=== PATIENT | male | born 1945 | race Caucasian/White ===

== ENCOUNTER → 2016-07-31 | Outpatient (CLI) | payer OTHER, BC | LOC: MMPC 11:11 | DX: H93.11 Tinnitus, right ear (principal); I10 Essential (primary) hypertension; H40.9 Unspecified glaucoma; M72.0 Palmar fascial fibromatosis [Dupuytren]; M10.9 Gout, unspecified; M65.28 Calcific tendinitis, other site | CPT/HCPCS: 99213; G0463 ==

== ENCOUNTER 2018-03-27 03:37 | Observation (INO) ==
--- NOTE | 2018-03-27 04:03 | PDOC ---
Abdomen/Flank HPI - General Chief Complaint: Abdomen Pain Stated Complaint: Stomach Pain Date Seen by Provider: 03/27/18 Time Seen by Provider: 03:55 Source: POSITIVE: Patient Exam Limitations: POSITIVE: No limitations Nurse's Notes Reviewed & Considered: Yes - History of Present Illness Initial Comments: The patient is a 72-year-old male who presents to the emergency department with complaints of abdominal pain. He states that yesterday evening he had onset of fairly severe upper abdominal pain. He had associated nausea however did not have any vomiting. He states that this intense pain lasted for several hours and then subsequently subsided for the most part. He has some continued residual pain primarily in his right lower abdomen. He states that currently his pain level is only a 1 out of 10. He denies any associated chest pain, shortness of breath, change in bowel movements, urinary symptoms, fever or any o ther associated complaints. He has not had any prior abdominal surgeries. He denies any previous history of similar pain. - Patient Home Medications Home Medications: Home Medications Aspirin 81 mg ORAL QD tab 03/15/12 Latanoprost [Xalatan] 1 drp OP QD drp 03/15/12 folic acid 1 mg tablet 1 mg PO QDAY #90 tab 05/28/17 timolol 0.5 % eye drops 1 drp OP QD #1 drp 01/10/18 losartan 50 mg-hydrochlorothiazide 12.5 mg tablet 1 tab PO QDAY #90 tab 02/17/18 allopurinol 300 mg tablet 300 mg PO QDAY #90 tab 02/19/18 - Patient Allergies Allergies/Adverse Reactions: Allergies Allergy/AdvReac Type Severity Reaction Status Date / Time brimonidine tartrate Allergy Intermediate NOT Verified 03/27/18 03:48 [From [facility]] APPLICABLE Past Medical History Past Medical History Reviewed: Other (please comment) ROS - Limitations ROS Limitations: No Limitations Constitution: DENIES: Chills, Fever Cardiovascular: DENIES: Chest Pain Respiratory: DENIES: Shortness Of Breath Neurological: REPORTS: Denies Neuro Symptoms Gastrointestinal: REPORTS: Abdominal Pain, Nausea. DENIES: Vomitting, Diarrhea, Black Stools, Bloody Stools Musculoskeletal: REPORTS: Denies MS Symptoms Genitourinary: REPORTS: Denies Symptoms Eyes: REPORTS: Denies Symptoms ENT: REPORTS: Denies Symptoms Skin: DENIES: Rash Abdominal/Flank Pain PE - General Appearance General Appearance: POSITIVE: Alert, Cooperative, No Acute Distress - HEENT HEENT: POSITIVE: Head Inspection Nml, Eyes Inspection Nml, Ears Inspection Nml, Pharynx Inspect. Nml - Neck Neck: POSITIVE: Normal Inspection. NEGATIVE: Lymphadenopathy - Respiratory Respiratory: POSITIVE: No Respiratory Distress, Breath Sounds Normal - Cardiovascular Cardiovascular: POSITIVE: Regular Rate and Rhythm, Heart Sounds Normal Peripheral Pulses: Dorsalis-pedis (R): 2+, Dorsalis-pedis (L): 2+ - Abdomen Abdomen: Soft: (All Quadrants), Normal Bowel Sounds: (All Quadrants), No Guarding: (All Quadrants), No Rebound: (All Quadrants), No Palpabale Mass: (All Quadrants), No Distention: (All Quadrants) Additional Abdominal Details: The patient does have tenderness in the right lower quadrant without guarding or rebound tenderness. - Back Back: NEGATIVE: CVA Tenderness (R), CVA Tenderness (L) - Skin Skin: POSITIVE: Intact, No Rash - Extremities Extremity: Normal ROM: (All Extremities), Normal Inspection: (All Extremities) - Neurological Neurological: POSITIVE: Oriented X3 Abdomen Progress - Results Reviewed by me Xrays/CTs/US Reviewed by me: Yes Discussed with Radiologist: Yes Radiology Findings: CT scan of the abdomen and pelvis with IV contrast shows an appendicolith with associated dilated appendix and inflammatory changes consistent with acute appendicitis per radiologist. Lab Results Reviewed by Me: Yes CBC and BMP: 03/27/18 04:25 03/27/18 04:25 - Patient's Progress MDM / ED Course: On arrival the patient was rating his pain at only a 1 out of 10. He does have tenderness in the right lower quadrant. An IV was established and blood work revealed an elevated white blood cell count 16.9. The remainder of his blood work was essentially unremarkable. CT scan of the abdomen and pelvis with IV contrast does show findings consistent with acute appendicitis without evidence of perforation per radiologist. These findings were discussed with the patient. Dr. Mendiola was consulted from general surgery. While awaiting surgical consultation the patient did have increased nausea and was given Zofran 4 mg IV. After surgical consultation, preparations were made to take the patient to the operating room for appendectomy per Dr. Mendiola. - Consult Counseled: POSITIVE: Patient, Family, RE: Lab Results, RE: Radiology Results, RE: DX Patient Care Time - Estimated PCT Patient Care Time (In Minutes): 35 Vital Signs - VS Reviewed Vital Signs Reviewed: Yes Discharge Clinical Impression: Acute appendicitis Condition: Fair Follow Up With: Luis Cano [Primary Care Provider] -
[2018-03-27 04:32] LABS: BASOPHILS # (AUTO) 0.02 10*3/UL; BASOPHILS % (AUTO) 0.1 % (0-1); EOSINOPHILS # (AUTO) 0.09 10*3/UL; EOSINOPHILS % (AUTO) 0.5 % (0-8); Hematocrit [HCT] 46.5 % (42.0-52.0); Hemoglobin [HGB] 16.1 g/dL (14.0-18.0); LYMPHOCYTES # (AUTO) 3.44 10*3/uL; MEAN CORPUSCULAR HEMOGLOBIN 30.6 PG (27-31); MEAN CORPUSCULAR HGB CONC 34.6 g/dL (33-37); MEAN CORPUSCULAR VOLUME 88.4 FL (80-90); MEAN PLATELET VOLUME 11.1 FL (7.4-12.2); MONOCYTES # (AUTO) 1.05 10*3/UL (0.3-0.8); MONOCYTES % (AUTO) 6.2 % (5-15); NEUTROPHILS % (AUTO) 72.7 % (50-80); PLATELET MORPHOLOGY COMMENT NORMAL MORPHOLOGY (NORM); RBC MORPHOLOGY COMMENT NORMAL MORPHOLOGY (NORM); RED BLOOD COUNT 5.26 10^6/uL (4.70-6.10); WBC MORPHOLOGY COMMENT NORMAL MORPHOLOGY (NORM)
[2018-03-27 04:43] LABS: BLOOD UREA NITROGEN 20 mg/dL (7-22); LIPASE 42 IU/L (23-300); SERUM ALBUMIN 4.6 g/dL (3.5-4.8)
--- NOTE | 2018-03-27 06:24 | DI ---
EXAM: CT Abdomen and Pelvis With Intravenous Contrast CLINICAL HISTORY: Abdominal Pain TECHNIQUE: Axial computed tomography images of the abdomen and pelvis with intravenous contrast. COMPARISON: No relevant prior studies available. FINDINGS: Lung bases: Unremarkable. No mass. No consolidation. Mediastinum: There is a small hiatal hernia. ABDOMEN: Liver: Unremarkable. No mass. Gallbladder and bile ducts: Unremarkable. No calcified stones. No ductal dilation. Pancreas: Unremarkable. No mass. No ductal dilation. Spleen: Unremarkable. No splenomegaly. Adrenals: Unremarkable. No mass. Kidneys and ureters: Unremarkable. No solid mass. No hydronephrosis. Stomach and bowel: Unremarkable. No obstruction. No mucosal thickening. PELVIS: Appendix: The appendix is thick, measuring up to 12 mm in diameter. There is a 5 mm appendicolith at the base of the appendix. There is mild inflammation around the periappendiceal fat. There is no evidence of perforation or abscess. Bladder: Unremarkable. No mass. Reproductive: Unremarkable as visualized. ABDOMEN and PELVIS: Intraperitoneal space: Unremarkable. No free air. No significant fluid collection. Bones/joints: No acute fracture. No dislocation. Soft tissues: There is small bilateral fat-containing inguinal hernias. Vasculature: Unremarkable. No abdominal aortic aneurysm. Lymph nodes: Unremarkable. No enlarged lymph nodes. IMPRESSION: Acute appendicitis. No evidence of abscess or perforation. [employer] 03/27/18 06:29 Call Doctor Regarding Appendicitis, called Dr. Charli Felix on 03/27 06:29 (-07:00)
[2018-03-27] MEDS ORDERED: ONDANSETRON 4 MG/2 ML VIAL IVP ONE (07:29)
[2018-03-27] MEDS ORDERED: Lactated Ringers 1,000 ML PRIMARY IV ONE ×2 (08:20→09:47)
[2018-03-27] MEDS ORDERED: ROCURONIUM 10 MG/1 ML - 5 ML VIAL IVP ONE ×2 (08:48→09:39)
[2018-03-27] MEDS ORDERED: PROPOFOL 10 MG/1 ML (200 MG/20 ML) VIAL IV ONE (08:50)
[2018-03-27] MEDS ORDERED: fentaNYL Inj 250 MCG/5 ML VIAL ONE (08:50)
[2018-03-27] MEDS ORDERED: MIDAZOLAM HCL 2 MG/2 ML VIAL ONE (08:50)
[2018-03-27] MEDS ORDERED: LIDOCAINE MPF 2% - 5 ML (20 MG/1 ML) ONE (08:50)
[2018-03-27] MEDS ORDERED: Sodium Chloride 0.9% 100 ML IV ONE (09:02)
[2018-03-27] MEDS ORDERED: BUPIVACAINE 0.25% W/ EPI - 10 ML VIAL ONE (09:10)
[2018-03-27] MEDS ORDERED: CefOXitin Inj 2 GM in Sodium Chloride 0.9% 100 ML IV ONE ×2 (09:24→19:00)
[2018-03-27] MEDS ORDERED: KETAMINE 100 MG/1 ML - 5 ML ONE (09:31)
[2018-03-27] MEDS ORDERED: ONDANSETRON 4 MG/2 ML VIAL ONE (09:41)
[2018-03-27] MEDS ORDERED: KETOROLAC 30 MG/1 ML VIAL ONE (09:41)
[2018-03-27] MEDS ORDERED: SUGAMMADEX SODIUM 200 MG/2 ML VIAL IV ONE ×2 (09:47→10:29)
[2018-03-27] MEDS ORDERED: ONDANSETRON 4 MG/2 ML VIAL IVP PRN (10:21)
[2018-03-27] MEDS ORDERED: HYDROcodone-APAP 5 MG -325 MG TABLET PO PRN (10:23)
[2018-03-27] MEDS ORDERED: Lactated Ringers 1,000 ML PRIMARY IV SCH ×2 (10:30→10:45)
[2018-03-27] MEDS ORDERED: CefOXitin Inj 2 GM in Sodium Chloride 0.9% 100 ML IV SCH (10:30)
[2018-03-27] MEDS ORDERED: HYDROmorphone 2 MG/1 ML IVP PRN (10:37)
[2018-03-27] MEDS ORDERED: PROMETHAZINE 25 MG/1 ML VIAL IM PRN (10:37)
[2018-03-27] MEDS ORDERED: fentaNYL Inj 100 MCG/2 ML VIAL IVP PRN (10:37)
[2018-03-27] MEDS ORDERED: LIDOCAINE W/ SODIUM BICARB 0.5 ML SYR SUBD PRN (10:37)
--- NOTE | 2018-03-27 10:38 | CRNA.PROGR ---
Anesthesia Recovery Phase I - Post Anesthesia Evaluation Patient's Condition on Arrival in Phase I: Stable Pain Level: 0
--- NOTE | 2018-03-27 10:38 | CRNA.PROGR ---
Anesthesia Time - Procedure/Recovery Time Start Date: 03/27/18 End Date: 03/27/18 Anesthesia : Time In: 09:07 Anesthesia : Time Out: 10:30 Anesthesia : Total Time: 83 - Total Anesthesia Time Total Anesthesia Time (minutes): 83 - Other Weight: 113.398 kg Height: 5 ft 11 in Body Mass Index (BMI): 34.8
[2018-03-27] MEDS ORDERED: HYDROcodone-APAP 5 MG -325 MG TABLET PO SCH (19:30)
[2018-04-01 18:00] VITALS: BP 120/67; RESP 16; TEMP 99.6; O2SAT 91
== END 2018-03-27 20:02 | disposition home or self-care (01) ==
LOC: ER 03:37 → OR 08:50 → OPS 08:50 → MED/SURG 08:50 → OPS 09:01
PROVIDERS: ADMIT Surgery; ATTEND Surgery